=== PATIENT | female | born 2000 | race Caucasian/White ===

== ENCOUNTER 2019-03-11 12:40 | Emergency (ER) | payer OTHER ==
[2019-03-11 14:05] VITALS: BP 112/61
--- NOTE | 2019-03-11 14:50 | UC ---
Throat Pain/Nasal [place] HPI - HPI Summary HPI Summary: 18-year-old female with history of asthma presents with complaints of general malaise, headache, neck pain, nasal congestion, sore throat, and a productive cough for yellowish green sputum for over a week. States she was evaluated at [facility] emergency room on 03/07/2019 and was diagnosed with a viral upper respiratory infection. States she had a negative rapid strep at that time. Patient states that her symptoms have continued to worsen. Denies fever, photophobia, ear pain, dysphagia, chest pain, shortness of breath , wheezing, abdominal pain, nausea, vomiting, or diarrhea. - History of Current Complaint Chief Complaint: UCGeneralIllness Stated Complaint: ST,HEAD/NECK PAIN,HURTS TO SWALLOW Time Seen by Provider: 03/11/19 14:28 Hx Obtained From: Patient Hx Last Menstrual Period: 03/06/19 Pain Intensity: 6 - Allergies/Home Medications Allergies/Adverse Reactions: Allergies Allergy/AdvReac Type Severity Reaction Status Date / Time No Known Allergies Allergy Verified 03/11/19 14:05 Home Medications: Home Medications Albuterol HFA INHALER* [Ventolin HFA Inhaler*] 2 puff INH Q4H PRN 03/11/19 [ History Confirmed 03/11/19] Bcp 03/11/19 [History] Naproxen [Naproxen 500 mg tab] 500 mg PO BID PRN 03/11/19 [History Confirmed ] PMH/Surg Hx/FS Hx/Imm Hx Respiratory History: Asthma - Surgical History Surgical History: Yes Surgery Procedure, Year, and Place: bilateral hip surgeries - Family History Known Family History: Positive: Non-Contributory - Social History Occupation: Student Lives: Dormitory/Roommates Alcohol Use: Rare Substance Use Type: Marijuana Smoking Status (MU): Light Every Day Tobacco Smoker Review of Systems All Other Systems Reviewed And Are Negative: Yes Constitutional: Positive: Fatigue. Negative: Fever Skin: Negative: Rash Eyes: Negative: Drainage, Eye Redness, Photophobia ENT: Positive: Sore Throat, Nasal Discharge, Sinus Congestion, Sinus Pain/ Tenderness. Negative: Ear Ache Respiratory: Positive: Cough. Negative: Shortness Of Breath Cardiovascular: Negative: Palpitations, Chest Pain Gastrointestinal: Negative: Abdominal Pain, Vomiting, Diarrhea, Nausea Genitourinary: Positive: Negative Musculoskeletal: Positive: Negative Neurological: Positive: Negative Is Patient Immunocompromised?: No Physical Exam - Summary Physical Exam Summary: GENERAL APPEARANCE: Alert and cooperative obese female who appears to be in no acute distress. EYES: Conjunctiva clear. No drainage. EARS: External auditory canals and tympanic membranes clear, hearing grossly intact. NOSE: Moderate nasal congestion. No nasal discharge. THROAT: Pharyngeal erythema. No tonsilar inflammation, swelling, exudate, or lesions. Uvula midline. NECK: Neck supple, non-tender without lymphadenopathy. CARDIAC: Normal S1 and S2. No S3, S4 or murmurs. Rhythm is regular. There is no peripheral edema, cyanosis or pallor. Extremities are warm and well perfused. Capillary refill is less than 2 seconds. Peripheral pulses intact. LUNGS: Clear to auscultation without rales, rhonchi, wheezing or diminished breath sounds. Loose, non-productive cough. ABDOMEN: Positive bowel sounds. Soft, nondistended, nontender. No guarding or rebound. No masses or hepatosplenomegally. MUSKULOSKELETAL: ROM intact to all extremities. No joint erythema or tenderness. Normal muscular development. Normal gait. SKIN: Skin normal color, texture and turgor with no lesions or eruptions. Triage Information Reviewed: Yes Vital Signs: Initial Vital Signs Temp 98.2 F 03/11/19 14:01 Pulse 106 03/11/19 14:01 Resp 16 03/11/19 14:01 BP 112/61 03/11/19 14:01 Pulse Ox 99 03/11/19 14:01 Vital Signs Reviewed: Yes Throat Pain/Nasal Course/Dx - Course Course Of Treatment: 18-year-old female with history of asthma presents with complaints of general malaise, headache, neck pain, nasal congestion, sore throat, and a productive cough for yellowish green sputum for over a week. States she was evaluated at [facility] emergency room on 03/07/2019 and was diagnosed with a viral upper respiratory infection. States she had a negative rapid strep at that time. Patient states that her symptoms have continued to worsen. Denies fever, photophobia, ear pain, dysphagia, chest pain, shortness of breath , wheezing, abdominal pain, nausea, vomiting, or diarrhea. Afebrile. Vital signs stable. Patient had moderate nasal congestion, pharyngeal erythema, no tonsillar swelling or exudate, no cervical lymphadenopathy, clear bilateral breath sounds, a loose nonproductive cough, and otherwise unremarkable exam. Rapid strep test was negative. Discussed with the patient that her symptoms were likely viral in origin however with her progressively worsening symptoms could not exclude the possibility of a secondary bacterial infection. We discussed the risks and benefits of treating with an antibiotic and the patient is electing to start at this time. We'll place her on a course of azithromycin as well as recommend symptomatic treatment for an upper respiratory infection. She is to follow-up with her primary care provider in 3-5 days especially if symptoms are not improving. Anticipatory guidance and warning symptoms were reviewed with the patient. Verbalizes understanding and agrees with plan of care. - Differential Dx/Diagnosis Differential Diagnosis/HQI/PQRI: Mononucleosis, Peritonsillar Abscess, Pharyngitis, Tonsillitis, URI Provider Diagnosis: URI (upper respiratory infection) Discharge ED - Sign-Out/Discharge Documenting (check all that apply): Patient Departure All imaging exams completed and their final reports reviewed: No Studies - Discharge Plan Condition: Stable Disposition: HOME Prescriptions: Azithromyxin MARCIAL (NF) [Z-Marcial (Zithromax) 250 mg tabs #6] 2 tab PO .TODAY, THEN 1 DAILY #6 tab Benzonatate CAP* [Tessalon 100 MG CAP*] 100 mg PO TID PRN #21 cap PRN Reason: Cough Patient Education Materials: Upper Respiratory Infection (ED) Referrals: Leny Bojorquez NP [Primary Care Provider] - 3 Days Additional Instructions: The rapid strep test that was performed in the clinic today was negative. Your history and exam are consistent with an upper respiratory infection. Based on the worsening of your symptoms we will start you on an antibiotic. Take azithromycin 2 tabs today then 1 tab a day for the next 4 days. Get plenty of rest. Drink plenty of fluids. Use [id number] decongestant such as Sudafed according to directions to help with the nasal congestion. Take Tessalon Perles 1 capsule every 8 hours as needed for cough. Use over the counter ibuprofen (Advil, Motrin) or your naproxen according to directions as needed for pain or fever. Use salt water gargles several times a day if you have a sore throat. You may also use Chloraseptic spray or Cepacol lonzenges according to directions which contain a numbing medication and can provide some temporary relief from your sore throat. Follow up with your primary care provider in 3-5 days if symptoms persist. Seek immediate medical attention in the emergency room if you have fever greater than 100.5 F despite taking acetaminophen or ibuprofen, have chest pain , difficulty breathing, are unable to swallow, or have any worsening of symptoms. - Billing Disposition and Condition Condition: STABLE Disposition: Home
== END 2019-03-11 15:13 | disposition home or self-care (01) ==
LOC: UCCORT 12:40
DX: J06.9 Acute upper respiratory infection, unspecified (principal); J45.909 Unspecified asthma, uncomplicated; F17.290 Nicotine dependence, other tobacco product, uncomplicated; Z79.899 Other long term (current) drug therapy
CPT/HCPCS: 87651; 99202; G0463